=== PATIENT | male | born 1975 | race Caucasian/White ===

== ENCOUNTER 2017-09-26 14:53 | Emergency (ER) | payer BC ==
[~2017-09-26] VITALS: Ht 175.3 cm; Wt 75.3 kg
[~2017-09-26 14:53] MED LIST: MOTRIN
[2017-09-26 14:55] VITALS: BP 129/84
--- NOTE | 2017-09-26 15:04 | NUR ---
PT AMBULATED TO ER BED 01
--- NOTE | 2017-09-26 15:15 | NUR ---
42 Y/O M PRESENTS TO THE ED W/C/O, "RASH." PT STATES, "I USED A NEW PERFUME ON SUNDAY AND SINCE THEN MY THROAT HAS BEEN SWOLLEN AND I HAVE A RASH." UPON ASSESSMENT RED BUMPS NOTED TO NECK AND CHEST. PT O2 SAT: 98% ON THE MONITOR. NO S/S OF DISTRESS NOTED. RR EVEN/UNLAOBORED. PT DENIES N/V/D AND PAIN AT THIS TIME; SKIN IS INTACT, PINK/WARM/DRY; AAOX4, PERRL, WITH EVEN AND STEADY GAIT; LUNGS CLEAR BL, BREATHING UNLABORED; HR EVEN AND REGULAR, BL PERIPHERAL PULSES PRESENT; BS ACTIVE X4, NO TENDERNESS TO PALPATION, NO HEPATOSPLENOMEGALLY PALPATED, RESONANT TO PERCUSSION; PT DENIES ANY FEVER, CP, SOB, OR COUGH AT THIS TIME; PT STATES 0/10 PAIN AT THIS TIME; VSS; PATIENT POSITIONED FOR COMFORT; HOB ELEVATED; BEDRAILS UP X2; BED DOWN. PMH: ASTHMA IN WINTER PER PT MAYA
--- NOTE | 2017-09-26 16:00 | NUR ---
PT RESTING COMFORTABLY IN BED. NO S/S OF DISTRESS NOTED
[2017-09-26] MEDS ORDERED: methylPREDNISolone SS 125 MG/2 ML VIAL IM ONE (16:10)
[2017-09-26 16:33] VITALS: BP 129/75
--- NOTE | 2017-09-26 16:34 | NUR ---
Patient discharged with v/s stable. Written and verbal after care instructions given and explained. Patient alert, oriented and verbalized understanding of instructions. Ambulatory with steady gait. All questions addressed prior to discharge. ID band removed. Patient advised to follow up with PMD. Rx of BENADRYL ALLERGY 25MG KAPGEL, PREDNISONE 50MG given. Patient educated on indication of medication including possible reaction and side effects. Opportunity to ask questions provided and answered.
== END 2017-09-26 16:34 | disposition home or self-care (01) ==
LOC: MED 14:53
DX: L23.89 Allergic contact dermatitis due to other agents (principal); J45.909 Unspecified asthma, uncomplicated
CPT/HCPCS: 81002; 96372; 99283; J2930